=== PATIENT | male | born 1955 | race Caucasian/White ===

== ENCOUNTER 2022-01-03 07:57 | Day surgery (SDC) | payer MEDICAID ==
[2022-01-03] VITALS (18 sets, daily range): BP systolic 87–110; BP diastolic 53–86
[~2022-01-03] VITALS: Ht 185.4 cm; Wt 119.2 kg
[2022-01-03] MEDS ORDERED: METO-395 PO (08:31)
[2022-01-03] MEDS ORDERED: METO25TA6 PO (08:31)
[2022-01-03] MEDS ORDERED: APIX5TAB3 PO (08:31)
[2022-01-03] MEDS ORDERED: LANTUS SQ (08:31)
[2022-01-03] MEDS ORDERED: ATOR40TA PO (08:31)
[2022-01-03] MEDS ORDERED: HYDR-3964 PO (08:31)
[2022-01-03] MEDS ORDERED: OXYM15MI9 NS (08:31)
[2022-01-03] MEDS ORDERED: AMIO200T61 PO (08:31)
[2022-01-03] MEDS ORDERED: ASPI81TA52 PO (08:31)
[2022-01-03] MEDS ORDERED: fentaNYL/PF 50MCG/1 ML 2ML syringe IV ONE (09:20)
[2022-01-03] MEDS ORDERED: normal saline 1000ml 1,000 ML IV SCH (09:20)
[2022-01-03] MEDS ORDERED: MIDAZolam 1mg/ml 10ml vial IV ONE ×2 (09:20→13:55)
[2022-01-03 09:32] LABS: BASOPHILS # (AUTO) 0.2 X10'3 (0-0.2); BASOPHILS % (AUTO) 1.5 % (0-1); EOSINOPHILS # (AUTO) 0.1 X10'3 (0-0.9); EOSINOPHILS % (AUTO) 0.7 % (0-6); HEMATOCRIT 41.9 % (42.0-52.0); HEMOGLOBIN 14.2 g/dl (14.0-17.9); LYMPHOCYTES % (AUTO) 8.7 % (21-51); MEAN CORPUSCULAR HEMOGLOBIN 31.6 PG (27.0-31.0); MEAN CORPUSCULAR HGB CONC 33.8 g/dL (33.0-36.5); MEAN CORPUSCULAR VOLUME 93.5 FL (78-98); MEAN PLATELET VOLUME 7.2 FL (7.4-10.4); MONOCYTES % (AUTO) 8.9 % (2-12); NEUTROPHILS # (AUTO) 9.4 X10'3 (1.8-7.7); NEUTROPHILS % (AUTO) 80.2 % (42-75); PLATELET COUNT 509 X10'3 (140-440); RED BLOOD COUNT 4.49 X10'6 (4.70-6.10); RED CELL DISTRIBUTION WIDTH 15.2 % (11.5-14.5); WHITE BLOOD COUNT 11.7 X10'3 (4.5-11.0)
[2022-01-03 09:43] LABS: ALBUMIN 2.2 G/DL (3.4-5.0); BLOOD UREA NITROGEN 17 MG/DL (7-18); BUN/CREATININE RATIO 10.2 (5.4-32.0); CALCIUM 8.9 MG/DL (8.5-10.1); CREATININE 1.67 MG/DL (0.60-1.10); GLUCOSE 76 MG/DL (70-104); MAGNESIUM 1.9 MG/DL (1.5-2.4); TOTAL CARBON DIOXIDE 24.6 MMOL/L (24-32); eGFR 42 ML/MIN
[2022-01-03 10:46] LABS: ANION GAP 11 (8-16); CHLORIDE 103 MMOL/L (99-107); POTASSIUM 3.7 MMOL/L (3.5-5.1); SODIUM 139 MMOL/L (135-145)
[2022-01-03] MEDS ORDERED: MIDAZolam 1mg/ml 10ml vial IM ONE (13:55)
== END 2022-01-03 15:35 | disposition home or self-care (01) ==
LOC: SSTAY O 07:57
PROVIDERS: ATTEND Internal Medicine Cardiovascular Disease
DX: I48.19 Other persistent atrial fibrillation (principal); G47.30 Sleep apnea, unspecified; E11.22 Type 2 diabetes mellitus with diabetic chronic kidney disease; I12.9 Hypertensive chronic kidney disease with stage 1 through stage 4 chronic kidney disease, or unspecified chronic kidney disease; N18.9 Chronic kidney disease, unspecified; E66.9 Obesity, unspecified; Z68.34 Body mass index [BMI] 34.0-34.9, adult; Z79.899 Other long term (current) drug therapy; Z79.4 Long term (current) use of insulin
CPT/HCPCS: 36415; 80048; 82948; 83735; 85025; 85610; 92960; 93005; J2250; J3010; J7030